=== PATIENT | female | born 1950 | race Caucasian/White ===

== ENCOUNTER 2017-07-22 16:58 | Emergency (ER) | payer OTHER ==
[~2017-07-22] VITALS: Ht 162.6 cm; Wt 117.9 kg
[~2017-07-22 16:58] MED LIST: AMIODARONE PO; AMLO10TA2; ASCO500T11 PO; ASPI81TA OR; FER325T PO; FURO40TA4 PO; LEVAAER4 INH; LOSA25TA9 PO; MOME200A INH; MONT10TA34 PO; MULT-351 PO; PANT1INJ3 PO; POTA8TAB2 PO; SIMV-8 PO; TRAZADONE PO; WARF5TAB PO
[2017-07-22 18:05] LABS: Basophils # (auto) 0.2 uL; Basophils % (auto) 2.1 % (0.0-2.0); Eosinophils # (auto) 0.2 uL; Hematocrit 39.7 % (36.0-46.0); Hemoglobin 12.7 g/dL (12.2-16.2); Lymphocytes # (auto) 1.7 uL; Lymphocytes % (auto) 18.7 % (10.0-50.0); Mean Corpuscular Hemoglobin 30.5 pg (28.0-32.0); Mean Corpuscular Hgb Conc. 31.9 g/dL (32.0-36.0); Mean Corpuscular Volume 95.4 fL (80.0-100.0); Monocytes % (auto) 10.9 % (0.0-12.0); Neutrophils % (auto) 66.3 % (37.0-80.0); Platelet Count (auto) 244 10^3/uL (140-450); Red Blood Cells 4.16 10^6/uL (4.0-5.20); Red Cell Distribution Width 16.4 % (11.8-14.3); White Blood Cell 9.1 10^3/uL (4.4-10.8)
[2017-07-22 18:17] LABS: INR 3.28 (0.9-1.15); Partial Thromboplastin Time 40.4 sec (23.78-33.04); Prothrombin Time 32.8 sec (9.27-12.13)
[2017-07-22 18:27] LABS: Albumin 3.1 g/dL (3.4-5.0); BUN/Creatinine Ratio 21.1; Bilirubin, Total 0.6 mg/dL (0.2-1.0); Calcium 8.6 mg/dL (8.5-10.1); Potassium 3.9 mmol/L (3.5-5.1); Total Protein 6.2 g/dL (6.4-8.2)
[2017-07-22] MEDS ORDERED: PHYTONADIONE (VIT K)10 MG/ML 1ML VIAL SUBCUT ONE (18:45)
[2017-07-22 19:58] VITALS: BP 113/91
[2017-07-22] MEDS ORDERED: cefTRIAXone 1GM/10ml IVPUSH 10 ML IV ONE (20:15)
== END 2017-07-22 21:00 | disposition home or self-care (01) ==
LOC: EDBD 16:58 → ER 17:01
DX: R04.0 Epistaxis (principal); L03.116 Cellulitis of left lower limb; I10 Essential (primary) hypertension; I48.91 Unspecified atrial fibrillation; J45.909 Unspecified asthma, uncomplicated; K21.9 Gastro-esophageal reflux disease without esophagitis; Z79.01 Long term (current) use of anticoagulants; Z79.82 Long term (current) use of aspirin; Z88.6 Allergy status to analgesic agent
CPT/HCPCS: 36415; 71045; 80053; 85025; 85610; 85730; 93005; 93971; 96372; 96374; 99285; J3430; J0696

== ENCOUNTER 2018-02-06 23:24 | Emergency (ER) | payer OTHER ==
[~2018-02-06] VITALS: Ht 160 cm; Wt 99.8 kg
[~2018-02-06 23:24] MED LIST changes: +AMLO10TA12; -AMLO10TA2; +LOSA25TA40 PO; -LOSA25TA9 PO
[2018-02-07 01:08] LABS: Basophils # (auto) 0.1 uL; Basophils % (auto) 0.6 % (0.0-2.0); Eosinophils # (auto) 0.1 uL; Hematocrit 36.3 % (36.0-46.0); Hemoglobin 11.9 g/dL (12.2-16.2); Lymphocytes # (auto) 1.7 uL; Mean Corpuscular Hemoglobin 31.5 pg (28.0-32.0); Mean Corpuscular Hgb Conc. 32.8 g/dL (32.0-36.0); Monocytes # (auto) 1.2 uL; Neutrophils # (auto) 7.6 uL; Neutrophils % (auto) 71.4 % (37.0-80.0); Platelet Count (auto) 298 10^3/uL (140-450); Red Blood Cells 3.78 10^6/uL (4.0-5.20); Red Cell Distribution Width 13.3 % (11.8-14.3); White Blood Cell 10.6 10^3/uL (4.4-10.8)
[2018-02-07 01:15] LABS: Urine Bacteria FEW /hpf (None Seen); Urine Blood Negative /uL (Negative); Urine Hyaline Cast MANY /lpf (0 - 2); Urine Mucus FEW (None Seen); Urine WBC 3 /hpf (0 - 5)
[2018-02-07 01:26] LABS: Albumin 2.5 g/dL (3.4-5.0); BUN/Creatinine Ratio 27.7; Calcium 8.5 mg/dL (8.5-10.1); Potassium 4.5 mmol/L (3.5-5.1)
[2018-02-07 01:31] LABS: Bilirubin, Total 0.4 mg/dL (0.2-1.0); Total Protein 6.6 g/dL (6.4-8.2)
[2018-02-07] MEDS ORDERED: ONDANSETRON HCL 4 MG/2 ML VIAL IV ONE ×2 (01:45→04:15)
[2018-02-07] MEDS ORDERED: NALBUPHINE HCL 10 MG/1ml INJECTION IV ONE ×2 (01:45→04:15)
[2018-02-07] MEDS ORDERED: cefTRIAXone 1GM/50ML D5W 50 ML IV ONE (02:00)
[2018-02-07] MEDS ORDERED: VANCOMYCIN 1GM/250ML 250 ML IV ONE (02:00)
[2018-02-07 06:23] LABS: Partial Thromboplastin Time 67.8 sec (23.78-33.04); Prothrombin Time 52.8 sec (9.27-12.13)
[2018-02-07 06:27] LABS: INR 5.43 (0.9-1.15)
[2018-02-07] MEDS ORDERED: PHYTONADIONE ORAL Susp 10 mg/10ml PO ONE (09:15)
[2018-02-07] MEDS ORDERED: HYDROcodone-ACET 10/325MG TAB PO ONE (10:15)
[2018-02-07 10:40] VITALS: BP 115/54
== END 2018-02-07 09:09 | disposition home or self-care (01) ==
LOC: EDBD 23:24 → ER 23:27
DX: L03.116 Cellulitis of left lower limb (principal); I48.91 Unspecified atrial fibrillation; J45.909 Unspecified asthma, uncomplicated; M19.90 Unspecified osteoarthritis, unspecified site; K21.9 Gastro-esophageal reflux disease without esophagitis; I10 Essential (primary) hypertension; Z90.89 Acquired absence of other organs; Z79.899 Other long term (current) drug therapy; Z88.2 Allergy status to sulfonamides; Z88.6 Allergy status to analgesic agent; Z88.8 Allergy status to other drugs, medicaments and biological substances
CPT/HCPCS: 36415; 73700; 80053; 81001; 83605; 83880; 84484; 85025; 85379; 85610; 85730; 87040; 93005; 93971; 94761; 96365; 96368; 96375; 96376; 99284; J0696; J2300; J2405; J3370; J3430

== ENCOUNTER 2021-11-07 09:14 | Inpatient (IN) | payer OTHER, MEDICAID ==
[~2021-11-07] VITALS: Ht 165.1 cm; Wt 126.6 kg
[~2021-11-07 09:14] MED LIST changes: +AMIO200T6 PO; -AMIODARONE PO; +AMLO-496; -AMLO10TA12; +LOSA25TA38 PO; -LOSA25TA40 PO; +MONT-8 PO; -MONT10TA34 PO
[2021-11-07] MEDS ORDERED: SODIUM CHLORIDE 0.9% 500 ML IV ONE (09:45)
[2021-11-07 10:00] LABS: Hematocrit 36.1 % (36.0-46.0); Hemoglobin 11.5 g/dL (12.2-16.2); Red Blood Cells 3.61 10^6/uL (4.0-5.20); White Blood Cell 14.1 10^3/uL (4.4-10.8)
[2021-11-07] MEDS ORDERED: SODIUM CHLORIDE 0.9% 1,000 ML IV ONE ×2 (10:15)
[2021-11-07 10:27] LABS: Basophils % (manual) 0 (0.0-2.0); Blast Cells 0; Eosinophils % (manual) 0 (0-7); Metamyelocytes % 0; Myelocytes % 0; Promyelocytes % 0; Reactive Lymphocytes 0
[2021-11-07 11:01] LABS: Band Neutrophils % (manual) 1; Lymphocytes % (manual) 9 (10.0-50.0); Monocytes % (manual) 7 (0-12)
[2021-11-07] MEDS ORDERED: HYDROcodone-ACET 10/325MG TAB PO ONE (12:15)
[2021-11-07] MEDS ORDERED: cefTRIAXone 1GM/50ML D5W 50 ML IV ONE (12:30)
[2021-11-07 13:28] LABS: INR 1.11 (0.9-1.15)
[2021-11-07 13:55] LABS: Albumin 2.4 g/dL (3.4-5.0); BUN/Creatinine Ratio 41.8; Calcium 7.9 mg/dL (8.5-10.1)
[2021-11-07 13:58] LABS: Bilirubin, Total 0.3 mg/dL (0.2-1.0); Total Protein 5.8 g/dL (6.4-8.2)
[2021-11-07 14:04] LABS: Urine Bacteria NONE SEEN /hpf (None Seen); Urine Blood Negative /uL (Negative); Urine Hyaline Cast FEW /lpf (0 - 2); Urine Specific Gravity 1.026 (1.001-1.035); Urine WBC 2 /hpf (0 - 5)
[2021-11-07 14:07] LABS: Potassium 7.5 mmol/L (3.5-5.1)
[2021-11-07] MEDS ORDERED: SODIUM BICARBONATE 8.4% INJ 50ML SYRINGE IV ONE (14:45)
[2021-11-07] MEDS ORDERED: CALCIUM GLUC 1,000mg/50ml-NS 50 ML IV ONE (14:45)
[2021-11-07] MEDS ORDERED: InsuLIN REG 1unit/0.01ml Soln (100units/ml) IV ONE (14:45)
[2021-11-07] MEDS ORDERED: FUROSEMIDE 20 MG/2 ML VIAL IV ONE (14:45)
[2021-11-07] MEDS ORDERED: NOREPINEPHRINE 8 MG/250ML KIT 250 ML IV SCH (14:45)
[2021-11-07] MEDS ORDERED: DEXTROSE (50%) 50ML SYRG IV ONE (14:45)
[2021-11-07] MEDS ORDERED: ALBUTEROL SULF 2.5 MG/0.5ML(0.5%) NEB SOLN NEB ONE (14:45)
[2021-11-07] MEDS ORDERED: SODIUM ZIRCONIUM CYCL 10 GM PAK PO ONE (14:45)
[2021-11-07] MEDS ORDERED: ONDANSETRON HCL 4 MG/2 ML VIAL IV PRN (16:00)
[2021-11-07] MEDS ORDERED: NITROGLYCERIN 0.4 MG SL TAB SL PRN (16:00)
[2021-11-07] MEDS ORDERED: DOCUSATE SOD 100 MG CAP PO PRN (16:00)
[2021-11-07] MEDS ORDERED: WARFARIN SODIUM 5 MG TAB PO ONE (16:30)
[2021-11-07 17:13] LABS: INR 1.07 (0.9-1.15); Partial Thromboplastin Time 37.6 sec (24.6-33.4)
[2021-11-07] MEDS: HYDROcodone-ACET 10/325MG TAB PO PRN (20:30)
[2021-11-07] MEDS ORDERED: HYDROmorphone HCL 2 MG/ML VL/or syr IV ONE (21:15)
[2021-11-07] MEDS: FUROSEMIDE 20 MG/2 ML VIAL IV SCH (21:17)
[2021-11-07] MEDS ORDERED: ENOXAPARIN SOD 100 MG/1 ML SYRINGE SC SCH (22:00)
[2021-11-07] MEDS: DABIGATRAN 75 MG CAP PO SCH (22:10)
[2021-11-07] MEDS: ACETAMINOPHEN 325 MG TAB PO PRN (23:45)
[2021-11-08] MEDS: HYDROcodone-ACET 10/325MG TAB PO PRN ×3 (03:56→20:04)
[2021-11-08 04:52] LABS: Basophils # (auto) 0 10 ^3/uL (0-0.2); Basophils % (auto) 0.3 % (0.0-2.0); Eosinophils # (auto) 0 10 ^3/uL (0-0.8); Eosinophils % (auto) 0.3 % (0.0-7.0); Hematocrit 31.4 % (36.0-46.0); Hemoglobin 10.2 g/dL (12.2-16.2); Mean Corpuscular Hemoglobin 32.3 pg (28.0-32.0); Mean Corpuscular Hgb Conc. 32.6 g/dL (32.0-36.0); Mean Corpuscular Volume 99.1 fL (80.0-100.0); Monocytes # (auto) 1.4 10 ^3/uL (0-1.3); Monocytes % (auto) 12.2 % (0.0-12.0); Neutrophils # (auto) 8.9 10 ^3/uL (1.6-8.6); Neutrophils % (auto) 78.2 % (37.0-80.0); Red Blood Cells 3.17 10^6/uL (4.0-5.20); Red Cell Distribution Width 13.7 % (11.8-14.3); White Blood Cell 11.4 10^3/uL (4.4-10.8)
[2021-11-08 05:07] LABS: INR 1.1 (0.9-1.15); Partial Thromboplastin Time 42.5 sec (24.6-33.4)
[2021-11-08 05:10] LABS: Albumin 2.3 g/dL (3.4-5.0); Calcium 7.9 mg/dL (8.5-10.1)
[2021-11-08 05:14] LABS: Bilirubin, Total 0.3 mg/dL (0.2-1.0); Total Protein 4.9 g/dL (6.4-8.2)
[2021-11-08 05:27] LABS: Potassium 6.5 mmol/L (3.5-5.1)
[2021-11-08] MEDS: FUROSEMIDE 20 MG/2 ML VIAL IV SCH ×2 (06:19→17:20)
[2021-11-08] MEDS ORDERED: SODIUM ZIRCONIUM CYCL 10 GM PAK PO ONE (06:30)
[2021-11-08] MEDS ORDERED: SODIUM BICARBONATE 8.4 % INJ 50ML VIAL IV ONE (06:30)
[2021-11-08] MEDS ORDERED: DEXTROSE (50%) 50ML SYRG IV ONE (06:30)
[2021-11-08] MEDS ORDERED: InsuLIN REG 1unit/0.01ml Soln (100units/ml) IV ONE (06:30)
[2021-11-08] MEDS ORDERED: CALCIUM GLUC 1,000mg/50ml-NS 50 ML IV ONE (06:30)
[2021-11-08] MEDS: ACETAMINOPHEN 325 MG TAB PO PRN (08:18)
[2021-11-08] MEDS: cefTRIAXone 1GM/50ML D5W 50 ML IV SCH (08:45)
[2021-11-08] MEDS: ASPirin-EC 81 mg tab PO SCH (08:45)
[2021-11-08] MEDS: DABIGATRAN 75 MG CAP PO SCH ×2 (08:46→22:04)
[2021-11-08] MEDS ORDERED: AMIODARONE HCL 200 MG TAB PO SCH (10:00)
[2021-11-08 13:00] VITALS: BP 101/62
[2021-11-08 16:23] VITALS: BP 108/56
[2021-11-08 22:00] VITALS: BP 97/71
[2021-11-09 05:00] VITALS: BP 113/66
[2021-11-09] MEDS: HYDROcodone-ACET 10/325MG TAB PO PRN ×3 (05:00→21:18)
[2021-11-09] MEDS: FUROSEMIDE 20 MG/2 ML VIAL IV SCH ×2 (06:12→17:27)
[2021-11-09 09:00] VITALS: BP 98/59
[2021-11-09] MEDS: DABIGATRAN 75 MG CAP PO SCH ×2 (09:24→21:48)
[2021-11-09] MEDS: ASPirin-EC 81 mg tab PO SCH (09:24)
[2021-11-09] MEDS: cefTRIAXone 1GM/50ML D5W 50 ML IV SCH (09:25)
[2021-11-09 13:00] VITALS: BP 108/74
[2021-11-09 16:53] VITALS: BP 101/55
[2021-11-09 22:00] VITALS: BP 112/52
[2021-11-10 05:00] VITALS: BP 105/58
[2021-11-10] MEDS: FUROSEMIDE 20 MG/2 ML VIAL IV SCH ×2 (06:19→18:00)
[2021-11-10 07:25] LABS: Basophils # (auto) 0 10 ^3/uL (0-0.2); Basophils % (auto) 0.5 % (0.0-2.0); Eosinophils # (auto) 0.1 10 ^3/uL (0-0.8); Eosinophils % (auto) 1.1 % (0.0-7.0); Hematocrit 31.6 % (36.0-46.0); Hemoglobin 10.5 g/dL (12.2-16.2); Lymphocytes # (auto) 0.9 10 ^3/uL (0.4-5.4); Lymphocytes % (auto) 9.7 % (10.0-50.0); Mean Corpuscular Hemoglobin 32.9 pg (28.0-32.0); Mean Corpuscular Hgb Conc. 33.4 g/dL (32.0-36.0); Mean Corpuscular Volume 98.4 fL (80.0-100.0); Monocytes # (auto) 1.2 10 ^3/uL (0-1.3); Monocytes % (auto) 12.5 % (0.0-12.0); Neutrophils # (auto) 7.2 10 ^3/uL (1.6-8.6); Neutrophils % (auto) 76.2 % (37.0-80.0); Nucleated Red Blood Cells % 0.1 %; Red Blood Cells 3.21 10^6/uL (4.0-5.20); Red Cell Distribution Width 13.8 % (11.8-14.3); White Blood Cell 9.4 10^3/uL (4.4-10.8)
[2021-11-10 07:49] LABS: BUN/Creatinine Ratio 36.4; Calcium 8.4 mg/dL (8.5-10.1); Potassium 4.3 mmol/L (3.5-5.1)
[2021-11-10 09:00] VITALS: BP 109/74
[2021-11-10] MEDS: DABIGATRAN 75 MG CAP PO SCH (09:26)
[2021-11-10] MEDS: ASPirin-EC 81 mg tab PO SCH (09:26)
[2021-11-10] MEDS: cefTRIAXone 1GM/50ML D5W 50 ML IV SCH (09:26)
[2021-11-10] MEDS: HYDROcodone-ACET 10/325MG TAB PO PRN ×3 (09:27→18:00)
[2021-11-10 13:00] VITALS: BP 120/72
[2021-11-10 17:00] VITALS: BP 110/76
== END 2021-11-10 20:30 | disposition home or self-care (01) | DRG 871 ==
LOC: EDBD 09:14 → ER 09:14 → TELE 15:53 → TELE-WESTW 11-08 11:48
PROVIDERS: ADMIT Nurse Practitioner Family; ATTEND Internal Medicine Pulmonary Disease
DX: A41.9 Sepsis, unspecified organism (principal); I26.99 Other pulmonary embolism without acute cor pulmonale; I50.33 Acute on chronic diastolic (congestive) heart failure; I48.20 Chronic atrial fibrillation, unspecified; J98.11 Atelectasis; N17.9 Acute kidney failure, unspecified; L03.119 Cellulitis of unspecified part of limb; Z68.42 Body mass index [BMI] 45.0-49.9, adult; I42.9 Cardiomyopathy, unspecified; L02.416 Cutaneous abscess of left lower limb; L03.116 Cellulitis of left lower limb; E66.01 Morbid (severe) obesity due to excess calories; E78.5 Hyperlipidemia, unspecified; I11.0 Hypertensive heart disease with heart failure; E87.5 Hyperkalemia; J45.909 Unspecified asthma, uncomplicated; K21.9 Gastro-esophageal reflux disease without esophagitis; K43.9 Ventral hernia without obstruction or gangrene; K44.9 Diaphragmatic hernia without obstruction or gangrene; I89.0 Lymphedema, not elsewhere classified; M19.90 Unspecified osteoarthritis, unspecified site; N28.1 Cyst of kidney, acquired; R73.03 Prediabetes; W18.39XA Other fall on same level, initial encounter; Z20.822 Contact with and (suspected) exposure to COVID-19; S81.812A Laceration without foreign body, left lower leg, initial encounter; Z79.01 Long term (current) use of anticoagulants; Z79.51 Long term (current) use of inhaled steroids; Z79.899 Other long term (current) drug therapy; Z83.3 Family history of diabetes mellitus; Z80.3 Family history of malignant neoplasm of breast; Z80.0 Family history of malignant neoplasm of digestive organs; Z82.5 Family history of asthma and other chronic lower respiratory diseases; Z82.49 Family history of ischemic heart disease and other diseases of the circulatory system; Z82.62 Family history of osteoporosis; Z81.8 Family history of other mental and behavioral disorders; Z82.0 Family history of epilepsy and other diseases of the nervous system; Z82.3 Family history of stroke; Z83.49 Family history of other endocrine, nutritional and metabolic diseases; Z80.1 Family history of malignant neoplasm of trachea, bronchus and lung; Z80.41 Family history of malignant neoplasm of ovary; Z80.8 Family history of malignant neoplasm of other organs or systems; Y93.89 Activity, other specified; Y92.89 Other specified places as the place of occurrence of the external cause; Y99.8 Other external cause status; Z86.711 Personal history of pulmonary embolism
CPT/HCPCS: 36415; 70450; 71045; 74176; 80048; 80053; 81001; 82962; 83036; 83605; 83735; 83880; 84132; 84443; 84484; 85007; 85025; 85027; 85610; 85730; 87040; 93005; 93306; 94640; 96361; 96365; 96367; 96375; 99291; G0378; J0696; J1815

== ENCOUNTER 2021-11-10 21:43 | Inpatient (IN) | payer OTHER, MEDICAID ==
[~2021-11-10] VITALS: Ht 162.6 cm; Wt 133.4 kg
[2021-11-10] MEDS ORDERED: SODIUM CHLORIDE 0.9% 1,000 ML IV ONE ×2 (22:00→23:45)
[2021-11-10 22:59] LABS: Basophils # (auto) 0 10 ^3/uL (0-0.2); Basophils % (auto) 0.2 % (0.0-2.0); Eosinophils # (auto) 0.1 10 ^3/uL (0-0.8); Eosinophils % (auto) 0.5 % (0.0-7.0); Hematocrit 30.5 % (36.0-46.0); Hemoglobin 9.9 g/dL (12.2-16.2); Lymphocytes # (auto) 0.9 10 ^3/uL (0.4-5.4); Lymphocytes % (auto) 6.4 % (10.0-50.0); Mean Corpuscular Hemoglobin 32.2 pg (28.0-32.0); Mean Corpuscular Hgb Conc. 32.5 g/dL (32.0-36.0); Mean Corpuscular Volume 99.1 fL (80.0-100.0); Monocytes # (auto) 1.4 10 ^3/uL (0-1.3); Monocytes % (auto) 9.9 % (0.0-12.0); Nucleated Red Blood Cells % 0.1 %; Red Blood Cells 3.08 10^6/uL (4.0-5.20); White Blood Cell 14.5 10^3/uL (4.4-10.8)
[2021-11-10 23:12] LABS: INR 1.17 (0.9-1.15); Partial Thromboplastin Time 24.6 sec (24.6-33.4)
[2021-11-10 23:22] LABS: BUN/Creatinine Ratio 28.8; Calcium 7.9 mg/dL (8.5-10.1); Lactic Acid w/Reflex 3.2 mmol/L (0.4-2.0); Magnesium 1.6 mg/dL (1.6-2.6); Potassium 4.7 mmol/L (3.5-5.1)
[2021-11-10 23:28] LABS: Bilirubin, Total 0.2 mg/dL (0.2-1.0); Total Protein 5.4 g/dL (6.4-8.2)
[2021-11-10] MEDS ORDERED: cefTRIAXone 1GM/50ML D5W 50 ML IV ONE (23:45)
[2021-11-11] MEDS ORDERED: dilTIAZem 25 MG/5 ML VIAL IV ONE (02:00)
[2021-11-11] MEDS ORDERED: HYDROcodone-ACET 5/325MG TAB PO ONE (02:00)
[2021-11-11] MEDS ORDERED: dilTIAZem HCL 50 MG/10 ML VIAL IV ONE (02:07)
[2021-11-11 08:50] LABS: Alcohol, Urine < 3.0 mg/dL (0-10); Amphetamine Screen, Urine NEGATIVE (NEGATIVE); Barbiturate Scree,Urine NEGATIVE (NEGATIVE); Benzodiazephine Screen, Urine NEGATIVE (NEGATIVE); Cannabinoid Screen, Urine NEGATIVE (NEGATIVE); Cocaine Screen, Urine NEGATIVE (NEGATIVE); Opiate Scree,Urine POSITIVE (NEGATIVE)
[2021-11-11 08:58] LABS: Phencyclidine Screen, Urine NEGATIVE (NEGATIVE)
[2021-11-11 09:00] LABS: Urine Bacteria NONE SEEN /hpf (None Seen); Urine Blood 2+ /uL (Negative); Urine Hyaline Cast FEW /lpf (0 - 2); Urine Mucus FEW (None Seen); Urine Specific Gravity 1.028 (1.001-1.035); Urine WBC 12 /hpf (0 - 5)
[2021-11-11] MEDS: SODIUM CHLORIDE 0.9% 1,000 ML IV SCH (09:45)
[2021-11-11] MEDS ORDERED: ACETAMINOPHEN 325 MG TAB PO PRN (09:45)
[2021-11-11] MEDS ORDERED: DOCUSATE SOD 100 MG CAP PO PRN (09:45)
[2021-11-11] MEDS ORDERED: ONDANSETRON HCL 4 MG/2 ML VIAL IV PRN (09:45)
[2021-11-11] MEDS ORDERED: ENOXAPARIN SOD 40 MG/0.4 ML SYRINGE SC SCH (10:00)
[2021-11-11] MEDS: LOSARTAN POTASSIUM 25 MG TAB PO SCH (10:00)
[2021-11-11] MEDS: AMIODARONE HCL 200 MG TAB PO SCH (10:00)
[2021-11-11] MEDS: ASPirin 81 mg TAB PO SCH (10:53)
[2021-11-11] MEDS: PANTOPRAZOLE 40 MG TAB PO SCH (10:53)
[2021-11-11] MEDS ORDERED: cefTRIAXone 1GM/50ML D5W 50 ML IV SCH (11:30)
[2021-11-11] MEDS: AZITHROMYCIN 500MG/ 250ML 250 ML IV SCH (11:51)
[2021-11-11] MEDS: HYDROcodone-ACET 10/325MG TAB PO PRN ×3 (11:51→20:38)
[2021-11-11] MEDS ORDERED: WARFARIN SODIUM 5 MG TAB PO ONE (17:00)
[2021-11-11] MEDS: PIPERACILLIN-TAZOB 3.375GM 100 ML IV SCH (22:25)
[2021-11-11] MEDS: traZODone HCL 50 MG TAB PO SCH (22:25)
[2021-11-12] MEDS: HYDROcodone-ACET 10/325MG TAB PO PRN ×5 (00:37→23:01)
[2021-11-12] MEDS: SODIUM CHLORIDE 0.9% 1,000 ML IV SCH (02:34)
[2021-11-12] MEDS: PIPERACILLIN-TAZOB 3.375GM 100 ML IV SCH ×3 (05:51→23:02)
[2021-11-12 07:20] VITALS: BP 112/64
[2021-11-12 08:46] LABS: Basophils # (auto) 0 10 ^3/uL (0-0.2); Basophils % (auto) 0.2 % (0.0-2.0); Eosinophils # (auto) 0.1 10 ^3/uL (0-0.8); Eosinophils % (auto) 1.4 % (0.0-7.0); Hematocrit 26.6 % (36.0-46.0); Lymphocytes # (auto) 0.9 10 ^3/uL (0.4-5.4); Lymphocytes % (auto) 8.7 % (10.0-50.0); Mean Corpuscular Hemoglobin 33.4 pg (28.0-32.0); Mean Corpuscular Hgb Conc. 33.8 g/dL (32.0-36.0); Mean Corpuscular Volume 98.6 fL (80.0-100.0); Monocytes # (auto) 1.2 10 ^3/uL (0-1.3); Monocytes % (auto) 11.6 % (0.0-12.0); Neutrophils # (auto) 7.9 10 ^3/uL (1.6-8.6); Neutrophils % (auto) 78.1 % (37.0-80.0); Red Blood Cells 2.69 10^6/uL (4.0-5.20); Red Cell Distribution Width 13.9 % (11.8-14.3); White Blood Cell 10.1 10^3/uL (4.4-10.8)
[2021-11-12 08:57] LABS: INR 1.01 (0.9-1.15)
[2021-11-12 08:58] LABS: Potassium 4.2 mmol/L (3.5-5.1)
[2021-11-12 09:07] VITALS: BP 112/64
[2021-11-12 09:07] LABS: BUN/Creatinine Ratio 27.5; Bilirubin, Total 0.3 mg/dL (0.2-1.0); Calcium 8.2 mg/dL (8.5-10.1); Total Protein 5.3 g/dL (6.4-8.2)
[2021-11-12] MEDS: AZITHROMYCIN 500MG/ 250ML 250 ML IV SCH (09:38)
[2021-11-12] MEDS: ASPirin 81 mg TAB PO SCH (09:39)
[2021-11-12] MEDS: PANTOPRAZOLE 40 MG TAB PO SCH (09:39)
[2021-11-12] MEDS: AMIODARONE HCL 200 MG TAB PO SCH ×2 (09:39→21:51)
[2021-11-12] MEDS: LOSARTAN POTASSIUM 25 MG TAB PO SCH (09:43)
[2021-11-12 12:30] VITALS: BP 118/74
[2021-11-12] MEDS ORDERED: ENOXAPARIN SOD 150 MG/1 ML SYRINGE SC ONE (13:30)
[2021-11-12] MEDS ORDERED: AMIODARONE HCL 200 MG TAB PO ONE (14:00)
[2021-11-12 16:30] VITALS: BP 117/78
[2021-11-12] MEDS: FERROUS SULFATE 325mg EC TAB PO SCH (17:34)
[2021-11-12 20:00] VITALS: BP 112/64
[2021-11-12] MEDS: traZODone HCL 50 MG TAB PO SCH ×2 (21:51→23:02)
[2021-11-12] MEDS: MONTELUKAST SODIUM 10 MG TAB PO SCH ×2 (21:51→23:02)
[2021-11-12 22:00] VITALS: BP 105/71
[2021-11-12] MEDS ORDERED: DABIGATRAN 75 MG CAP PO SCH (22:00)
[2021-11-12] MEDS ORDERED: ENOXAPARIN SOD 100 MG/1 ML SYRINGE SC SCH (22:00)
[2021-11-13] VITALS (8 sets, daily range): BP systolic 99–121; BP diastolic 55–81
[2021-11-13] MEDS: HYDROcodone-ACET 10/325MG TAB PO PRN ×5 (04:50→23:23)
[2021-11-13] MEDS: PIPERACILLIN-TAZOB 3.375GM 100 ML IV SCH (06:30)
[2021-11-13 07:03] LABS: Basophils # (auto) 0 10 ^3/uL (0-0.2); Basophils % (auto) 0.3 % (0.0-2.0); Eosinophils # (auto) 0.2 10 ^3/uL (0-0.8); Eosinophils % (auto) 1.9 % (0.0-7.0); Hematocrit 25.5 % (36.0-46.0); Hemoglobin 8.7 g/dL (12.2-16.2); Lymphocytes # (auto) 0.6 10 ^3/uL (0.4-5.4); Mean Corpuscular Hemoglobin 33.2 pg (28.0-32.0); Mean Corpuscular Volume 97.7 fL (80.0-100.0); Monocytes # (auto) 1.2 10 ^3/uL (0-1.3); Monocytes % (auto) 11.7 % (0.0-12.0); Neutrophils # (auto) 8.4 10 ^3/uL (1.6-8.6); Neutrophils % (auto) 80.1 % (37.0-80.0); Nucleated Red Blood Cells % 0.1 %; Red Cell Distribution Width 13.6 % (11.8-14.3); White Blood Cell 10.5 10^3/uL (4.4-10.8)
[2021-11-13 07:06] LABS: Calcium 7.8 mg/dL (8.5-10.1); Potassium 4.5 mmol/L (3.5-5.1)
[2021-11-13 07:09] LABS: BUN/Creatinine Ratio 33.3
[2021-11-13] MEDS: FERROUS SULFATE 325mg EC TAB PO SCH ×2 (08:00→18:00)
[2021-11-13] MEDS: PANTOPRAZOLE 40 MG TAB PO SCH ×2 (10:00→21:31)
[2021-11-13] MEDS: AMIODARONE HCL 200 MG TAB PO SCH ×2 (10:00→21:31)
[2021-11-13] MEDS: cefTRIAXone 1GM/50ML D5W 50 ML IV SCH (14:40)
[2021-11-13] MEDS ORDERED: ALBUTEROL SULF 2.5 MG/0.5ML(0.5%) NEB SOLN NEB PRN (14:45)
[2021-11-13] MEDS: AZITHROMYCIN 500MG/ 250ML 250 ML IV SCH (15:00)
[2021-11-13 16:49] LABS: Hematocrit 27.6 % (36.0-46.0); Hemoglobin 9.1 g/dL (12.2-16.2)
[2021-11-13] MEDS: PRADAXA 150 MG PO SCH (21:30)
[2021-11-13] MEDS: traZODone HCL 50 MG TAB PO SCH (21:31)
[2021-11-13] MEDS: MONTELUKAST SODIUM 10 MG TAB PO SCH (21:32)
[2021-11-13 21:45] LABS: Hematocrit 25.7 % (36.0-46.0); Hemoglobin 8.5 g/dL (12.2-16.2)
[2021-11-14 02:46] LABS: Hematocrit 25.5 % (36.0-46.0); Hemoglobin 8.6 g/dL (12.2-16.2)
[2021-11-14 05:00] VITALS: BP 113/75
[2021-11-14] MEDS: HYDROcodone-ACET 10/325MG TAB PO PRN ×5 (05:18→21:49)
[2021-11-14] MEDS: FERROUS SULFATE 325mg EC TAB PO SCH ×3 (08:00→17:34)
[2021-11-14 09:00] VITALS: BP 107/74
[2021-11-14] MEDS: PANTOPRAZOLE 40 MG TAB PO SCH ×2 (10:02→21:37)
[2021-11-14] MEDS: AMIODARONE HCL 200 MG TAB PO SCH ×2 (10:03→21:37)
[2021-11-14] MEDS: cefTRIAXone 1GM/50ML D5W 50 ML IV SCH (10:06)
[2021-11-14] MEDS: PRADAXA 150 MG PO SCH ×2 (10:34→21:36)
[2021-11-14 12:08] LABS: Basophils # (auto) 0.1 10 ^3/uL (0-0.2); Basophils % (auto) 0.6 % (0.0-2.0); Eosinophils # (auto) 0.1 10 ^3/uL (0-0.8); Eosinophils % (auto) 1.4 % (0.0-7.0); Hematocrit 27.6 % (36.0-46.0); Lymphocytes # (auto) 0.7 10 ^3/uL (0.4-5.4); Lymphocytes % (auto) 6.8 % (10.0-50.0); Mean Corpuscular Hemoglobin 32.2 pg (28.0-32.0); Mean Corpuscular Hgb Conc. 32.8 g/dL (32.0-36.0); Mean Corpuscular Volume 98.3 fL (80.0-100.0); Monocytes # (auto) 1.1 10 ^3/uL (0-1.3); Monocytes % (auto) 10.3 % (0.0-12.0); Neutrophils # (auto) 8.4 10 ^3/uL (1.6-8.6); Neutrophils % (auto) 80.9 % (37.0-80.0); Red Cell Distribution Width 13.7 % (11.8-14.3); White Blood Cell 10.3 10^3/uL (4.4-10.8)
[2021-11-14 13:00] VITALS: BP_SYST 128; BP_SYST 150; BP_DIAS 62; BP_DIAS 91
[2021-11-14] MEDS: AZITHROMYCIN 500MG/ 250ML 250 ML IV SCH (14:09)
[2021-11-14] MEDS ORDERED: DIGOXIN (250MCG/ML) 2 ML AMPULE IV ONE ×2 (15:15→21:00)
[2021-11-14 17:00] VITALS: BP 111/60
[2021-11-14] MEDS: MONTELUKAST SODIUM 10 MG TAB PO SCH (21:37)
[2021-11-14] MEDS: traZODone HCL 50 MG TAB PO SCH (21:37)
[2021-11-14 23:30] VITALS: BP 106/67
[2021-11-15] MEDS: HYDROcodone-ACET 10/325MG TAB PO PRN ×4 (04:19→20:12)
[2021-11-15 05:41] VITALS: BP 117/67
[2021-11-15 05:50] LABS: Basophils # (auto) 0 10 ^3/uL (0-0.2); Basophils % (auto) 0.4 % (0.0-2.0); Eosinophils # (auto) 0.3 10 ^3/uL (0-0.8); Eosinophils % (auto) 2.7 % (0.0-7.0); Hemoglobin 9.6 g/dL (12.2-16.2); Lymphocytes # (auto) 0.9 10 ^3/uL (0.4-5.4); Lymphocytes % (auto) 9.8 % (10.0-50.0); Mean Corpuscular Hemoglobin 32.4 pg (28.0-32.0); Mean Corpuscular Hgb Conc. 33.1 g/dL (32.0-36.0); Mean Corpuscular Volume 97.8 fL (80.0-100.0); Monocytes # (auto) 1.2 10 ^3/uL (0-1.3); Monocytes % (auto) 12.7 % (0.0-12.0); Neutrophils # (auto) 7.2 10 ^3/uL (1.6-8.6); Neutrophils % (auto) 74.4 % (37.0-80.0); Nucleated Red Blood Cells % 0.1 %; Red Blood Cells 2.97 10^6/uL (4.0-5.20); Red Cell Distribution Width 13.8 % (11.8-14.3); White Blood Cell 9.6 10^3/uL (4.4-10.8)
[2021-11-15 06:04] LABS: Anion Gap 7 (5-15); Blood Urea Nitrogen 14 mg/dL (7-18); Calcium 8.1 mg/dL (8.5-10.1); Carbon Dioxide 23 mmol/L (21-32); Chloride 104 mmol/L (98-107); Glucose 92 mg/dL (74-106); Potassium 5.2 mmol/L (3.5-5.1); Sodium 134 mmol/L (136-145)
[2021-11-15 06:09] LABS: BUN/Creatinine Ratio 23.3; GFR African American 127 mL/min; GFR Non-African American 105 mL/min
[2021-11-15] MEDS: FERROUS SULFATE 325mg EC TAB PO SCH ×2 (08:00→17:38)
[2021-11-15] MEDS: cefTRIAXone 1GM/50ML D5W 50 ML IV SCH (08:21)
[2021-11-15] MEDS: PANTOPRAZOLE 40 MG TAB PO SCH ×2 (08:22→21:50)
[2021-11-15] MEDS: AMIODARONE HCL 200 MG TAB PO SCH ×2 (08:23→21:50)
[2021-11-15] MEDS: PRADAXA 150 MG PO SCH ×2 (08:23→21:50)
[2021-11-15] MEDS: DIGOXIN 0.125 MG TAB PO SCH (08:26)
[2021-11-15 09:00] VITALS: BP 122/69
[2021-11-15] MEDS ORDERED: LEVO750T8 PO (10:26)
[2021-11-15] MEDS ORDERED: DIGO1TAB48 PO (10:26)
[2021-11-15] MEDS: AZITHROMYCIN 500MG/ 250ML 250 ML IV SCH (15:23)
[2021-11-15 17:16] VITALS: BP 138/72
[2021-11-15] MEDS: traZODone HCL 50 MG TAB PO SCH (21:50)
[2021-11-15] MEDS: MONTELUKAST SODIUM 10 MG TAB PO SCH (21:50)
[2021-11-15 22:00] VITALS: BP 90/60
[2021-11-16] MEDS: HYDROcodone-ACET 10/325MG TAB PO PRN ×5 (00:55→20:27)
[2021-11-16 05:00] VITALS: BP 106/65
[2021-11-16] MEDS: FERROUS SULFATE 325mg EC TAB PO SCH ×2 (08:00→18:00)
[2021-11-16 09:00] VITALS: BP 106/67
[2021-11-16] MEDS: cefTRIAXone 1GM/50ML D5W 50 ML IV SCH (09:01)
[2021-11-16] MEDS ORDERED: InsuLIN REG 1unit/0.01ml Soln (100units/ml) IV ONE (10:15)
[2021-11-16] MEDS ORDERED: DEXTROSE (50%) 50ML SYRG IV ONE (10:15)
[2021-11-16] MEDS ORDERED: SODIUM BICARBONATE 8.4% INJ 50ML SYRINGE IV ONE (10:15)
[2021-11-16] MEDS: PRADAXA 150 MG PO SCH ×2 (10:36→21:49)
[2021-11-16] MEDS: AMIODARONE HCL 200 MG TAB PO SCH ×2 (10:37→21:48)
[2021-11-16] MEDS: DIGOXIN 0.125 MG TAB PO SCH (10:37)
[2021-11-16] MEDS: PANTOPRAZOLE 40 MG TAB PO SCH ×2 (10:37→21:48)
[2021-11-16 12:05] LABS: Calcium 7.9 mg/dL (8.5-10.1); Potassium 4.3 mmol/L (3.5-5.1)
[2021-11-16 12:09] LABS: BUN/Creatinine Ratio 24.1
[2021-11-16 13:00] VITALS: BP 113/72
[2021-11-16] MEDS: AZITHROMYCIN 500MG/ 250ML 250 ML IV SCH (15:52)
[2021-11-16 16:52] VITALS: BP 108/67
[2021-11-16] MEDS: MONTELUKAST SODIUM 10 MG TAB PO SCH (21:48)
[2021-11-16] MEDS: traZODone HCL 50 MG TAB PO SCH (21:49)
[2021-11-16 22:00] VITALS: BP 114/63
[2021-11-17] MEDS: HYDROcodone-ACET 10/325MG TAB PO PRN ×4 (02:49→19:21)
[2021-11-17 05:00] VITALS: BP 113/74
[2021-11-17] MEDS: FERROUS SULFATE 325mg EC TAB PO SCH (08:00)
[2021-11-17 09:00] VITALS: BP 102/53
[2021-11-17 09:27] LABS: Magnesium 1.9 mg/dL (1.6-2.6); Potassium 4.3 mmol/L (3.5-5.1)
[2021-11-17] MEDS: PANTOPRAZOLE 40 MG TAB PO SCH ×2 (09:58→21:40)
[2021-11-17] MEDS: cefTRIAXone 1GM/50ML D5W 50 ML IV SCH (10:00)
[2021-11-17] MEDS: DIGOXIN 0.125 MG TAB PO SCH (10:05)
[2021-11-17] MEDS: PRADAXA 150 MG PO SCH ×2 (10:23→21:40)
[2021-11-17 13:00] VITALS: BP 100/62
[2021-11-17 17:00] VITALS: BP 106/57
[2021-11-17] MEDS: traZODone HCL 50 MG TAB PO SCH (21:40)
[2021-11-17] MEDS: MONTELUKAST SODIUM 10 MG TAB PO SCH (21:40)
[2021-11-17 22:00] VITALS: BP 109/52
[2021-11-18] MEDS: HYDROcodone-ACET 10/325MG TAB PO PRN ×3 (01:12→16:47)
[2021-11-18 05:00] VITALS: BP 101/53
[2021-11-18 08:11] VITALS: BP 105/55
[2021-11-18] MEDS: cefTRIAXone 1GM/50ML D5W 50 ML IV SCH (09:00)
[2021-11-18] MEDS: DIGOXIN 0.125 MG TAB PO SCH (10:00)
[2021-11-18] MEDS: PANTOPRAZOLE 40 MG TAB PO SCH (10:00)
[2021-11-18] MEDS: PRADAXA 150 MG PO SCH (10:00)
[2021-11-18 12:32] VITALS: BP 108/42
[2021-11-18 16:54] VITALS: BP 122/71
[2021-11-18 17:53] VITALS: BP 112/64
== END 2021-11-18 19:30 | DRG 871 ==
LOC: EDBD 21:43 → ER 21:45 → TELE 11-11 09:48 → TELE-WESTW 11-12 06:06
PROVIDERS: ADMIT Internal Medicine; ATTEND Internal Medicine Pulmonary Disease
PROC: 05H933Z Insertion of Infusion Device into Right Brachial Vein, Percutaneous Approach (ICD-10-PCS; principal; 2021-11-10)
PROC: B54MZZA Ultrasonography of Right Upper Extremity Veins, Guidance (ICD-10-PCS; 2021-11-10)
DX: A41.9 Sepsis, unspecified organism (principal); E43 Unspecified severe protein-calorie malnutrition; J18.9 Pneumonia, unspecified organism; N39.0 Urinary tract infection, site not specified; L03.116 Cellulitis of left lower limb; D68.69 Other thrombophilia; I48.20 Chronic atrial fibrillation, unspecified; I50.32 Chronic diastolic (congestive) heart failure; Z68.43 Body mass index [BMI] 50.0-59.9, adult; Z20.822 Contact with and (suspected) exposure to COVID-19; D64.9 Anemia, unspecified; M19.90 Unspecified osteoarthritis, unspecified site; K21.9 Gastro-esophageal reflux disease without esophagitis; R65.20 Severe sepsis without septic shock; E66.01 Morbid (severe) obesity due to excess calories; E78.00 Pure hypercholesterolemia, unspecified; I11.0 Hypertensive heart disease with heart failure; I87.2 Venous insufficiency (chronic) (peripheral); I89.0 Lymphedema, not elsewhere classified; R73.03 Prediabetes; J45.909 Unspecified asthma, uncomplicated; C76.3 Malignant neoplasm of pelvis; W18.39XA Other fall on same level, initial encounter; Y93.89 Activity, other specified; Y92.098 Other place in other non-institutional residence as the place of occurrence of the external cause; Y99.8 Other external cause status; Z86.711 Personal history of pulmonary embolism; Z83.3 Family history of diabetes mellitus; Z82.5 Family history of asthma and other chronic lower respiratory diseases; Z82.49 Family history of ischemic heart disease and other diseases of the circulatory system; Z82.62 Family history of osteoporosis; Z82.0 Family history of epilepsy and other diseases of the nervous system; Z81.8 Family history of other mental and behavioral disorders; Z80.8 Family history of malignant neoplasm of other organs or systems; Z80.41 Family history of malignant neoplasm of ovary; Z82.3 Family history of stroke; Z80.3 Family history of malignant neoplasm of breast; Z80.1 Family history of malignant neoplasm of trachea, bronchus and lung; Z80.0 Family history of malignant neoplasm of digestive organs; Z79.899 Other long term (current) drug therapy; Z79.51 Long term (current) use of inhaled steroids; Z79.01 Long term (current) use of anticoagulants
CPT/HCPCS: 36415; 71045; 80048; 80053; 80307; 81001; 83605; 83735; 83880; 84132; 84484; 85014; 85018; 85025; 85610; 85730; 86850; 86870; 86900; 86901; 87040; 87077; 87081; 87086; 87186; 93005; 96361; 96365; 96366; 97110; 97116; 97163; 97530; 99291; G0378; J0696; J1815; J2543

== ENCOUNTER 2021-11-24 12:44 | Emergency (ER) | payer OTHER, MEDICAID ==
[~2021-11-24] VITALS: Ht 162.6 cm; Wt 136.0 kg
[~2021-11-24 12:44] MED LIST changes: -AMIO200T6 PO; +DIGO1TAB48 PO; +LEVO750T8 PO
[2021-11-24 13:14] LABS: Basophils # (auto) 0 10 ^3/uL (0-0.2); Basophils % (auto) 0.5 % (0.0-2.0); Eosinophils # (auto) 0.2 10 ^3/uL (0-0.8); Eosinophils % (auto) 1.7 % (0.0-7.0); Hematocrit 30.3 % (36.0-46.0); Hemoglobin 9.6 g/dL (12.2-16.2); Lymphocytes # (auto) 0.6 10 ^3/uL (0.4-5.4); Lymphocytes % (auto) 7.3 % (10.0-50.0); Mean Corpuscular Hemoglobin 30.6 pg (28.0-32.0); Mean Corpuscular Hgb Conc. 31.8 g/dL (32.0-36.0); Mean Corpuscular Volume 96.5 fL (80.0-100.0); Monocytes # (auto) 0.9 10 ^3/uL (0-1.3); Monocytes % (auto) 10.5 % (0.0-12.0); Neutrophils # (auto) 6.9 10 ^3/uL (1.6-8.6); Nucleated Red Blood Cells % 0.2 %; Red Blood Cells 3.14 10^6/uL (4.0-5.20); Red Cell Distribution Width 14.2 % (11.8-14.3); White Blood Cell 8.7 10^3/uL (4.4-10.8)
[2021-11-24 13:29] LABS: INR 1.18 (0.9-1.15)
[2021-11-24 13:39] LABS: Urine Bacteria NONE SEEN /hpf (None Seen); Urine Blood 3+ /uL (Negative); Urine Mucus MODERATE (None Seen); Urine Specific Gravity 1.034 (1.001-1.035); Urine WBC 122 /hpf (0 - 5)
[2021-11-24 13:45] LABS: Albumin 2.1 g/dL (3.4-5.0); Calcium 7.9 mg/dL (8.5-10.1); Potassium 3.8 mmol/L (3.5-5.1)
[2021-11-24 13:48] LABS: BUN/Creatinine Ratio 14.7; Bilirubin, Total 0.3 mg/dL (0.2-1.0); Total Protein 4.8 g/dL (6.4-8.2)
[2021-11-24] MEDS ORDERED: cefTRIAXone 1GM/50ML D5W 50 ML IV ONE (15:30)
[2021-11-24] MEDS ORDERED: LIDOCAINE 1% (LOCAL ANESTH.) PF 5ml SDV ID ONE (17:00)
[2021-11-24] MEDS ORDERED: HYDROcodone-ACET 5/325MG TAB PO ONE (20:30)
[2021-11-24] MEDS ORDERED: SODIUM CHLOR 0.9% PF (SALINE LOCK) 10ML VIAL/SYR IV SCH (22:00)
[2021-11-25 00:05] VITALS: BP 109/66
== END 2021-11-25 00:47 | disposition short-term general hospital (02) ==
LOC: EDBD 12:44 → ER 12:44
DX: N39.0 Urinary tract infection, site not specified (principal); R77.8 Other specified abnormalities of plasma proteins; J45.909 Unspecified asthma, uncomplicated; I10 Essential (primary) hypertension; K21.9 Gastro-esophageal reflux disease without esophagitis; Z45.2 Encounter for adjustment and management of vascular access device; Z20.822 Contact with and (suspected) exposure to COVID-19
CPT/HCPCS: 36415; 36569; 71045; 80053; 81001; 84484; 85025; 85610; 85730; 87426; 96365; 96375; 99285; C1751; J0696; J7050